=== PATIENT | male | born 1990 | race Caucasian/White ===

== ENCOUNTER 2022-05-20 15:05 | Outpatient (CLI) | payer BC, SELFPAY ==
[2022-05-20 17:33] LABS: Albumin* 5.1 g/dL (3.3-5.0); Chloride* 100 mmol/L (96-114); Sodium* 140 mmol/L (135-149)
[2022-05-20 17:34] LABS: Potassium* 4.3 mmol/L (3.6-5.1)
[2022-05-20 17:36] LABS: Cholesterol* 132 mg/dL (90-199)
[2022-05-20 17:37] LABS: Alanine Aminotransferase* 31 U/L (4-50); Alkaline Phosphatase* 58 U/L (40-150); Aspartate Amino Transferase* 31 U/L (12-35); Bilirubin Total* 0.7 mg/dL (0.1-1.5); Blood Urea Nitrogen* 9 mg/dL (5-24); Calcium* 9.5 mg/dL (8.4-10.6); Carbon Dioxide* 30 mmol/L (20-32); Creatinine* 0.8 mg/dL (0.5-1.5); Estimated Glomerular Filt Rate 121 ml/min; Glucose* 96 mg/dL (60-115); Total Protein* 7.8 g/dL (6.0-8.3); Triglycerides* 46 mg/dL (40-149)
[2022-05-20 17:38] LABS: HDL Cholesterol* 43 mg/dL (>=40); LDL Cholesterol Calculated 80 mg/dL (<100)
[2022-05-20 17:47] LABS: C Reactive Protein* < 0.5 mg/dL (0.5-1.0)
[2022-05-22 07:35] LABS: Hematocrit 43.5 % (37.0-53.0); Hemoglobin* 14.9 gm/dL (13.5-17.5); Red Blood Count 5.34 m/uL (4.30-5.90); White Blood Count* 6.06 K/uL (4.50-11.00)
[2022-05-22 07:36] LABS: Mean Corpuscular HGB Conc 34 gm/dL (32-36); Mean Corpuscular Hemoglobin 28 pg (26-34); Mean Corpuscular Volume 82 fL (80-100); Platelet Count* 193 K/uL (140-440); RDW Coefficient of Variation % 12.1 % (11.5-15.5)
[2022-05-22 07:37] LABS: Basophils Percent Auto 0.5 % (0.0-3.0); Eosinophils Percent Auto 1.3 % (0.0-7.0); Lymphocytes Percent Auto 40.8 % (20-44); Monocytes Percent Auto 5.6 % (0.0-11.0); Neutrophils Percent Auto 51.8 % (42.0-72.0)
[2022-05-22 07:38] LABS: Slide Review Reflex No
[2022-05-22 07:43] LABS: Basophils Absolute Auto 0.03 K/uL (0.00-0.30)
== END 2022-05-20 15:06 | disposition home or self-care (01) ==
PROVIDERS: PCP Family Medicine; Visit Provider Family Medicine
DX: Z00.00 Encounter for general adult medical examination without abnormal findings (principal); E78.5 Hyperlipidemia, unspecified; R53.83 Other fatigue
CPT/HCPCS: 80053; 80061; 85025; 86140

== ENCOUNTER 2023-07-19 14:01 | Outpatient (CLI) | payer BC, SELFPAY | END 2023-07-19 14:02 | disposition home or self-care (01) | PROVIDERS: PCP Family Medicine; Visit Provider Family Medicine | DX: Z00.00 Encounter for general adult medical examination without abnormal findings (principal); E78.5 Hyperlipidemia, unspecified; R53.83 Other fatigue | CPT/HCPCS: 80048; 80061; 84460 ==

== ENCOUNTER 2024-08-07 13:48 | Outpatient (CLI) | payer BC, SELFPAY | END 2024-08-07 13:49 | disposition home or self-care (01) | PROVIDERS: PCP Family Medicine; Visit Provider Family Medicine | DX: E78.2 Mixed hyperlipidemia (principal); R53.83 Other fatigue | CPT/HCPCS: 80048; 80061; 84460 ==

== ENCOUNTER 2025-05-21 14:18 | Outpatient (CLI) | payer OTHER, SELFPAY | END 2025-05-21 14:19 | disposition home or self-care (01) | PROVIDERS: PCP Family Medicine; Visit Provider Family Medicine | DX: R53.83 Other fatigue (principal); K30 Functional dyspepsia; M25.50 Pain in unspecified joint | CPT/HCPCS: 80053; 83690; 84443; 86038; 86140 ==